=== PATIENT | male | born 1960 | race Hispanic/Latino ===

== ENCOUNTER → 2020-04-06 | Day surgery (SDC) | payer BC, OTHER ==
[~2020-04-06] MED LIST: ASPIRIN81 MG PO; CELEBREX100 MG PO; CRESTOR10 MG PO; ENDUR-ACIN500 MG PO; FENTANYL CITRATE/PF 100MCG/2 ML INJ ONE; FLOMAX0.4 MG PO; MIDAZOLAM HCL 2 MG/2 ML VIAL ONE; PENTASA500 MG PO; PROPOFOL IV EMULSION 10 MG/ML 20 ML VIAL ONE; REMICADE100 MG/VIA IV; TRIAMTERENE-HCTZ1 EA PO
[2020-04-06 10:15] VITALS: BP 139/86
--- NOTE | 2020-04-06 13:32 | Operative Report ---
DATE OF PROCEDURE: 04/06/2020 SURGEON: Clint Oneil MD PROCEDURE PERFORMED: Colonoscopy. PREOPERATIVE DIAGNOSIS: History of colon polyps. POSTOPERATIVE DIAGNOSIS: History of colon polyps, none found, diverticulosis, history of Crohn disease. No active disease noted. PREOPERATIVE MEDICATIONS: Consisted of MAC anesthesia. DESCRIPTION OF PROCEDURE: Using an Olympus SUSAN colonoscope was inserted into the patient's rectum and advanced without difficulty to the level of the cecum. The colon was studied from that level back down to the rectum. No inflammatory changes were noted. No colon polyps were seen. Some few scattered diverticula in the sigmoid colon were found. Other than that the rest of examination was normal. The colonoscope was withdrawn from the patient's rectum and the procedure was ended. Clint Oneil MD SAF/MODL /[id number]
== END | disposition home or self-care (01) ==
LOC: OR 07:00
PROVIDERS: ATTEND Internal Medicine Gastroenterology
DX: K50.00 Crohn's disease of small intestine without complications (principal); Z86.010 Personal history of colon polyps; K57.30 Diverticulosis of large intestine without perforation or abscess without bleeding; I10 Essential (primary) hypertension; E78.5 Hyperlipidemia, unspecified; M19.90 Unspecified osteoarthritis, unspecified site; N39.0 Urinary tract infection, site not specified; Z01.810 Encounter for preprocedural cardiovascular examination; Z01.812 Encounter for preprocedural laboratory examination; Z11.59 Encounter for screening for other viral diseases; Z79.82 Long term (current) use of aspirin
CPT/HCPCS: 45378; 93005; J2704; U0002; J2250; J3010